=== PATIENT | male | born 1975 | race Caucasian/White ===

== ENCOUNTER 2017-03-29 20:46 | Emergency (ER) | payer OTHER ==
[~2017-03-29] VITALS: Ht 175.3 cm; Wt 120.0 kg
[2017-03-29 20:48] VITALS: BP 153/83; PULSE 87; RESP 18; TEMP 98.5; O2SAT 98
[2017-03-29] MEDS ORDERED: MULTTAB67 PO (21:10)
[2017-03-29] MEDS ORDERED: PROPARACAINE HCL 0.5% OPHT SOLN 15 ML BTL LEFT EYE ONE (21:30)
[2017-03-29] MEDS ORDERED: TETANUS/DIPHTHERIA TOXOID ADULT 0.5 ML VIAL IM ONE (21:30)
[2017-03-29] MEDS ORDERED: ERYTHROMYCIN 0.5% OPTH OINT 3.5 GM TUBO EACH EYE ONE (21:30)
--- NOTE | 2017-03-29 21:35 | PD ---
HPI Chief Complaint: Eye Problems/Injury Time Seen by Provider: 21:28 Travel History International Travel<30 days: No Contact w/Intl Traveler<30days: No Traveled to known affect area: No History of Present Illness HPI 41-year-old male presents to the emergency department for complaint of foreign body sensation to the left eye. Patient wears eyeglasses. Patient states yesterday while wearing his eyeglasses but no protective goggles was grinding the metal of a stonework tracer blade. Patient states the time of the activity he does not recall any irritation to the eye but later in the day did notice some irritation and has sensation of retained foreign body. Patient denies any change in his vision. Patient does not know his tetanus status. Patient is not diabetic. PFSH Social History Tobacco Use: No Allergies-Medications (Allergen,Severity, Reaction): Coded Allergies: Penicillins (Verified Allergy, Intermediate, HIVES, 03/29/17) Reported Meds & Prescriptions Reported Meds & Active Scripts Active Erythromycin Opth Oint 5 Mg/Gm Oint 1 Applic LEFT EYE QID Reported Multiple Vitamin 1 Tab 1 Tab PO DAILY Review of Systems Except as stated in HPI: all other systems reviewed are Neg Physical Exam Narrative GENERAL: Well-developed well-nourished female distress no respiratory distress SKIN: Warm and dry. HEAD: Normocephalic. EYES: No scleral icterus. No injection or drainage. Bilateral pupils equal round reactive to light extraocular muscles intact. Fluorescein uptake and foreign body noted in the mid cornea of the left eye. No other foreign body identified of the left eye. Data Data Last Documented VS Vital Signs Date Time Temp Pulse Resp B/P (MAP) Pulse Ox O2 Delivery O2 Flow Rate FiO2 03/29/17 20:48 98.5 87 18 153/83 (106) 98 Orders Orders Proparacaine 0.5% Opth Soln (Alcaine 0.5 (03/29/17 21:30) Tetanus/Diphtheria Tox Adult (Tetanus/Di (03/29/17 21:30) Erythromycin 0.5% Opth Oint (Ilotycin 0. (03/29/17 21:30) MDM Medical Decision Making Medical Screen Exam Complete: Yes Emergency Medical Condition: Yes Medical Record Reviewed: Yes Differential Diagnosis Foreign body corneal abrasion corneal ulceration globe injury Narrative Course Visual acuities ordered; proparacaine administered; tetanus status updated; left eye with corrective lenses 20/20 right eye with corrective lenses 20/15 both eyes with corrective lenses 20/15 After administration of proparacaine drop to the left eye a moistened Q-tip was used to remove the foreign body from the cornea. Patient tolerated procedure well. Eye was irrigated. Ilotycin ointment applied tetanus status updated and patient is stable for outpatient management Diagnosis Primary Impression: Foreign body in cornea, left eye, initial encounter Additional Impression: Corneal abrasion, left Referrals: Bilingual Sales Assistant 3 days Call office on Saturday to schedule follow-up appointment Additional Instructions: May apply cool compresses to eye for irritation Avoid rubbing your eye/may use sunglasses Wear eyeglasses Use eye ointment as prescribed May take ibuprofen/Advil/Motrin as needed for discomfort associated with inflammation Med/Other Pt SpecificInfo: Prescription(s) given Scripts Erythromycin Opth Oint (Erythromycin Opth Oint) 5 Mg/Gm Oint 1 APPLIC LEFT EYE QID for Infection, #1 TUBE 0 Refills Prov: Denise Farmer MD 03/29/17 Disposition: 01 DISCHARGE HOME Condition: Stable Denise Farmer MD Mar 29, 2017 21:35
[2017-03-29] MEDS ORDERED: ERYTOIN10 LEFT EYE (22:02)
== END 2017-03-29 22:20 | disposition home or self-care (01) ==
LOC: PHEFT 20:46
DX: T15.02XA Foreign body in cornea, left eye, initial encounter (principal); S05.02XA Injury of conjunctiva and corneal abrasion without foreign body, left eye, initial encounter; Z23 Encounter for immunization
CPT/HCPCS: 90471; 90714